=== PATIENT | female | born 2000 | race Two or more races ===

== ENCOUNTER 2022-11-30 04:21 | Emergency (ER) | payer BC ==
[~2022-11-30] VITALS: Ht 162.6 cm; Wt 59.0 kg
--- NOTE | 2022-11-30 06:03 | NUR ---
BIBS FOR L ELBOW LACERATION S/P FALLING THROUGH A WINDOW WHILE DANCING. TETANUS NOT UTD. PT [id number], RESTING IN BED COMFORTABLY.
[2022-11-30] MEDS ORDERED: LIDOCAINE 1%-EPI 1:100,000 20 ML VIAL ONE (06:19)
--- NOTE | 2022-11-30 06:24 | NUR ---
Debbie jones in [facility] - 11/30/22 at 0649 by [facility] EMT AT BEDSIDE FOR LAC REPAIR
[2022-11-30] MEDS ORDERED: TDAP [DIPH/PERTUSSIS/TET] 0.5 ML VIAL IM ONE ×2 (06:26→06:30)
[2022-11-30] MEDS ORDERED: LIDOCAINE 1%-EPI 1:100,000 50 ML VIAL IJ ONE (06:30)
--- NOTE | 2022-11-30 06:48 | NUR ---
XR AT BEDSIDE
--- NOTE | 2022-11-30 07:15 | NUR ---
RECEIVED PT FROM JONNY GLEASON
--- NOTE | 2022-11-30 07:25 | NUR ---
REPORT GIVEN TO CARLA GLEASON FOR LORENE
--- NOTE | 2022-11-30 07:45 | NUR ---
AT BED side for suture done and dressing appled done keep clean and dry
--- NOTE | 2022-11-30 08:15 | NUR ---
Patient discharged to home in stable condition. Written and verbal after care instructions given. Patient verbalizes understanding of instruction.
[2022-11-30] MEDS ORDERED: BACITRACIN ZINC OINT PACKET 1 EA PACKET TP ONE (08:30)
[2022-11-30 08:39] VITALS: BP 117/77
== END 2022-11-30 08:40 | disposition home or self-care (01) ==
LOC: ER 04:25
DX: S51.012A Laceration without foreign body of left elbow, initial encounter (principal); W01.0XXA Fall on same level from slipping, tripping and stumbling without subsequent striking against object, initial encounter; Y93.41 Activity, dancing; Y92.89 Other specified places as the place of occurrence of the external cause; Y99.8 Other external cause status
CPT/HCPCS: 99283; 12002; 90471; 90715; 73080; J3490 ×2